=== PATIENT | male | born 1990 | race Two or more races ===

== ENCOUNTER 2023-01-20 05:35 | Emergency (ER) | payer OTHER ==
[~2023-01-20] VITALS: Ht 195.6 cm; Wt 109.8 kg
[2023-01-20 08:24] LABS: HEMATOCRIT 44.6 % (39.0-48.0); HEMOGLOBIN 14.7 g/dL (13-16.00); MEAN CELL VOLUME 78.3 fL (80.0-100.00); MEAN CORPUSCULAR HEMOGLOBIN 25.9 pg (27.00-32.0); MEAN CORPUSCULAR HGB CONC 33.1 g/dl (32.0-36.0); PLATELET COUNT 473 K/uL (150-450); RED CELL DISTRIBUTION WIDTH 14.9 % (11.5-14.5)
[2023-01-20 09:10] LABS: CALCIUM 9.3 mg/dL (8.5-10.1); CREATININE SERUM 1.01 mg/dL (0.70-1.30); GFR 86.16; POTASSIUM 3.9 mEq/L (3.5-5.1)
== END 2023-01-20 13:40 | disposition home or self-care (01) ==
LOC: ER 05:36
PROVIDERS: General Practice
DX: K52.89 Other specified noninfective gastroenteritis and colitis (principal)

== ENCOUNTER 2023-10-25 15:19 | Inpatient (IN) | payer OTHER ==
[~2023-10-25] VITALS: Ht 195.6 cm; Wt 113.4 kg
[2023-10-25] MEDS ORDERED: FAMOTIDINE/PF 20 MG in 0.9 % SODIUM CHLORIDE 8 ML IV PUSH STA (16:06)
[2023-10-25] MEDS ORDERED: DIPHENOXYLATE HCL/ATROPINE 1 UDTAB TABLET PO ONE (16:15)
[2023-10-25] MEDS ORDERED: 0.9 % SODIUM CHLORIDE 1,000 ML IV SCH ×2 (16:15→22:15)
[2023-10-25] MEDS ORDERED: ONDANSETRON HCL 2 MG/ML VIAL IV ONE (16:15)
[2023-10-25] MEDS ORDERED: FAMOTIDINE/PF 20 MG/2 ML VIAL ONE (16:22)
[2023-10-25] MEDS ORDERED: ONDANSETRON HCL 2 MG/ML VIAL ONE (16:22)
[2023-10-25 16:52] LABS: HEMATOCRIT 44.2 % (39.0-48.0); HEMOGLOBIN 14.9 g/dL (13-16.00); MEAN CELL VOLUME 78.6 fL (80.0-100.00); MEAN CORPUSCULAR HEMOGLOBIN 26.5 pg (27.00-32.0); MEAN CORPUSCULAR HGB CONC 33.7 g/dl (32.0-36.0); PLATELET COUNT 387 K/uL (150-450); RED BLOOD COUNT 5.63 M/uL (4.00-6.00); RED CELL DISTRIBUTION WIDTH 14.3 % (11.5-14.5)
[2023-10-25 17:29] LABS: ALBUMIN 4.2 gm/dL (3.4-5.0); BILIRUBIN TOTAL 0.81 mg/dL (0.3-1.2); CALCIUM 9.5 mg/dL (8.5-10.1); CREATININE SERUM 0.94 mg/dL (0.70-1.30); GFR 93.6; GLOBULINA 3.4 G/DL (2.4-3.5); POTASSIUM 4.33 mEq/L (3.5-5.1); TOTAL PROTEIN 7.6 gm/dL (6.4-8.2)
[2023-10-25] MEDS ORDERED: ACETAMINOPHEN 500 MG GEL..CAP PO ONE ×2 (17:51→18:00)
[2023-10-25] MEDS ORDERED: METRONIDAZOLE/SODIUM CHLORIDE 500 MG/100 ML PIGGYBACK IV ONE ×2 (17:52→18:00)
[2023-10-25] MEDS ORDERED: ACETAMINOPHEN 500 MG GEL..CAP PO PRN (22:15)
[2023-10-25] MEDS ORDERED: PROMETHAZINE HCL 25 MG/ML AMPUL IM ONE (22:30)
[2023-10-25] MEDS ORDERED: MEPERIDINE HCL/PF 25 MG/ML VIAL IM PRN (22:30)
[2023-10-25] MEDS ORDERED: ONDANSETRON HCL 4 MG in 0.9 % SODIUM CHLORIDE 50 ML IV PRN (22:30)
[2023-10-25] MEDS ORDERED: PROMETHAZINE HCL 25 MG/ML AMPUL ONE (23:18)
[2023-10-25 23:44] VITALS: BP 122/79
[2023-10-26 00:08] LABS: INR 1.08; PARTIAL THROMBOPLASTIN TIME 29.1 SECONDS (22.0-34.0); PROTHROMBIN TIME 11.7 SECONDS (9.0-11.5)
[2023-10-26] MEDS ORDERED: METRONIDAZOLE/SODIUM CHLORIDE 100 ML IV SCH (01:00)
[2023-10-26] MEDS ORDERED: FAMOTIDINE/PF 20 MG in 0.9 % SODIUM CHLORIDE 8 ML IV PUSH SCH (05:00)
[2023-10-26 06:59] LABS: PH,URINE 5.5 (5.0-8.0); URINE APPEARANCE Clear; URINE BILIRRUBIN Negative (NEGATIVE); URINE BLOOD Negative; URINE COLOR Dark Yellow; URINE GLUCOSE Negative (NEGATIVE); URINE KETONE Trace (NEGATIVE); URINE LEUKOCYTE Negative; URINE NITRATE Negative; URINE PROTEIN Trace (NEGATIVE)
[2023-10-26 07:00] LABS: URINE EPITHELIAL CELLS 4.9 uL (0.0-38.8); URINE RBC 10.2 uL (0.0-20.8)
[2023-10-26 07:09] LABS: URINE BACTERIA 3.7 uL (0.0-1933); URINE CAST 0.45 uL (0.0-1.40); URINE WBC 1.3 uL (0.0-23.2)
[2023-10-26 07:25] VITALS: BP 115/72; O2SAT 100
[2023-10-26] MEDS ORDERED: CIPROFLOXACIN IN 5 % DEXTROSE 200 ML IV SCH (09:00)
[2023-10-26 14:24] LABS: FOLIC ACID 12.06 ng/ml (4.78-20)
[2023-10-26 17:11] VITALS: BP 143/74; O2SAT 99
[2023-10-27 02:00] VITALS: BP 124/79
[2023-10-27] MEDS ORDERED: FAMOTIDINE/PF 20 MG/2 ML VIAL ONE (03:48)
[2023-10-27 09:06] VITALS: BP 134/76
[2023-10-27] MEDS ORDERED: PANTOPRAZOLE SODIUM 40 MG/VIAL VIAL IV PUSH SCH (09:37)
[2023-10-27 18:09] VITALS: BP 126/78; O2SAT 99
[2023-10-28 02:00] VITALS: BP 123/75
[2023-10-28 09:26] VITALS: BP 132/82
[2023-10-28 15:10] LABS: HEMATOCRIT 37.8 % (39.0-48.0); HEMOGLOBIN 12.8 g/dL (13-16.00); MEAN CELL VOLUME 78.8 fL (80.0-100.00); MEAN CORPUSCULAR HEMOGLOBIN 26.7 pg (27.00-32.0); MEAN CORPUSCULAR HGB CONC 33.8 g/dl (32.0-36.0); PLATELET COUNT 346 K/uL (150-450); RED CELL DISTRIBUTION WIDTH 14.3 % (11.5-14.5)
[2023-10-28 15:41] LABS: ALBUMIN 3.3 gm/dL (3.4-5.0); BILIRUBIN TOTAL 0.44 mg/dL (0.3-1.2); CALCIUM 8.6 mg/dL (8.5-10.1); CREATININE SERUM 0.69 mg/dL (0.70-1.30); GFR 133.74; GLOBULINA 2.7 G/DL (2.4-3.5); POTASSIUM 3.81 mEq/L (3.5-5.1)
[2023-10-28 18:25] VITALS: BP 146/78
[2023-10-29 00:44] VITALS: BP 118/63
[2023-10-29 10:41] VITALS: BP 129/63
[2023-10-29] MEDS ORDERED: CIPRO500 MG PO (11:17)
[2023-10-29] MEDS ORDERED: NEXIUM 24HR20 M1 PO (11:18)
[2023-10-29] MEDS ORDERED: INTESTINEX680 M1 PO (11:18)
[2023-10-29] MEDS ORDERED: METRONIDAZOLE500 MG PO (11:18)
[2023-10-29 15:10] LABS: gliadin iga 9 units (0-19); gliadin igg 5 units (0-19)
[2023-10-29 21:05] LABS: GIARDIA LAMBLIA EIA Negative (Negative)
[2023-11-02 09:11] LABS: ENDOMYSIAL ANTIBODY IGA Negative (Negative)
== END 2023-10-29 15:04 | DRG 392 ==
LOC: ER 15:20 → MEDJ 22:18
PROVIDERS: General Practice; ADMIT Internal Medicine; ATTEND Internal Medicine
PROC: BW21ZZZ Computerized Tomography (CT Scan) of Abdomen and Pelvis (ICD-10-PCS; principal; 2023-10-25)
DX: A09 Infectious gastroenteritis and colitis, unspecified (principal); K50.90 Crohn's disease, unspecified, without complications; A05.9 Bacterial foodborne intoxication, unspecified